=== PATIENT | female | born 1990 | race Caucasian/White ===

== ENCOUNTER 2024-01-06 23:35 | Emergency (ER) | payer SELFPAY ==
--- NOTE | ~2024-01-06 | XR_ITS ---
EXAMINATION: XR ANKLE, RIGHT CLINICAL INFORMATION: Fall. Pain. COMPARISON: None available. TECHNIQUE: AP, lateral, and mortise views of the right ankle. FINDINGS: Soft tissues are swollen at the ankle. Osseous fragment at the tip of the lateral malleolus are most consistent with old avulsed osseous fragments. Mild talocrural degenerative arthritis. Loose bodies are suspected in the posterior aspect of the joint adjacent to the os trigonum. Chronic posttraumatic deformity at the lateral aspect of the distal tibia. Talus appears intact. Small enthesopathic spurs are present at the Achilles tendon insertion and plantar fascial origin on the calcaneus. XR/XR ankle RT min 3V IMPRESSION: 1. Soft tissue swelling at the ankle. No acute fracture or malalignment. 2. Old avulsed osseous fragments at the tip of the lateral malleolus.
[2024-01-06 23:40] VITALS: BP 134/65; PULSE 66; RESP 14; TEMP 36.4; O2SAT 99; BMI 51.8
[2024-01-07] MEDS: oxyCODONE HCl Immed Release 5 MG TABLET PO (00:49)
[2024-01-07] MEDS: Bacitracin Oint 0.9 GM PACKET 1 APPL TOPICAL (00:49)
--- NOTE | 2024-01-07 00:56 | PC.NURSE ---
pt from home, a&ox4, respirations even and unlabored, reports stepping off of curb and falling and twisting right ankle; reports 10/10 right ankle pain. pt noted to have swelling to the right ankle, large scrape to the right knee and small scrapes to the right ankle. pt medicated per oct. bacitracin applied to right knee and applied to right ankle. right ankle wrapped with non adherent gauze and gauze wrap. tolerated well.
--- NOTE | 2024-01-07 01:05 | ED.GENADULT ---
HPI - General Adult General Chief complaint: Extremity Injury, Lower Stated complaint: Fell/rt leg and ankle Time Seen by Provider: 01/07/24 00:21 Source: patient, RN notes reviewed and old records reviewed Mode of arrival: ambulatory Limitations: no limitations History of Present Illness HPI narrative: 33-year-old female presents for evaluation of right ankle pain. Patient reports that she was standing outside when she stepped awkwardly and fell down. She scraped her right knee but mostly injured her right ankle She denies hitting her head or losing consciousness She has scraped the right knee and right ankle She is able to move the right knee without any difficulty Patient reports a low swelling to the outside of the right ankle and complains of 10/10 pain Denies any other pain including headaches, chest pain, shortness of breath Related Data Allergies Allergy/AdvReac Type Severity Reaction Status Date / Time No Known Allergies Allergy Verified 01/06/24 23:44 Review of Systems Constitutional: Constitutional: Denies headache(s) ENT: Denies headache(s) Musculoskeletal: Musculoskeletal: Reports arthralgias, Reports joint swelling and Reports limited range of motion Neurologic: Denies headache(s) PMFSH Social History Social History Smoked in Last 30 Days: No Use of substances other than those prescribed or required for medical reasons: No Advance Directives: No Advance Directives Information Provided: Yes Patient : No Physical Exam ED Vital Signs: Vital Signs - 24 hr 01/06/24 23:40 Temperature 97.6 F Pulse Rate 66 Respiratory Rate 14 Blood Pressure 134/65 Pulse Oximetry 99 Oxygen Delivery Method Room Air BMI result Body Mass Index 51.8 Const General: healthy appearing, comfortable, no acute distress, alert and awake Nutritional Appearance: well nourished Orientation/consciousness: patient oriented x3 HENMT Head: Yes normocephalic and Yes atraumatic Eyes Eyelids: Yes eyelids normal Conjunctivae: conjunctivae normal Sclerae: sclerae normal Corneas: corneas normal Pupils: Equal, round and reactive pupils present EOM: EOMs intact bilaterally Neck Neck: Yes full ROM Resp Effort & Inspection: normal respiratory effort, able to speak in complete sentences and not labored Skin Other: Superficial abrasions to the right knee and right lateral ankle without deep lacerations. General skin exam: elasticity normal Neuro General: patient oriented x3 Cranial nerves: Yes Equal, round and reactive pupils present and Yes Bilaterally intact EOM present Cognition (Neuro): normal cognition Extrem Other: Patient has significant edema of the right lateral malleolus of the ankle. This area is exquisitely tender to palpation. CMS intact of the right foot. She is able to wiggle all toes have good capillary refill and good sensation. There is no tenderness to the right knee. Course Course Course Narrative: X-ray shows old avulsion fracture, but no acute fractures. The patient does confirm that she has a previous fracture there. Plan to discharge with crutches and symptomatic care only Reevaluation(s) Time: 01:25 Medications Administered Discontinued Medications Generic Name Dose Route Start Last Admin Trade Name Freq PRN Reason Stop Dose Admin Bacitracin 1 appl 01/07/24 00:30 01/07/24 00:49 Bacitracin Oint 0.9 Gm Packet TOPICAL 01/07/24 00:31 1 appl ONCE ONE Administration Protocol Oxycodone HCl 5 mg 01/07/24 00:29 01/07/24 00:49 Oxycodone Hcl Immed Release 5 Mg Tablet PO 01/07/24 00:30 5 mg ONCE ONE Administration Medical Decision Making Medical Decision Making [facility] Narrative: 33-year-old female presents for evaluation of right ankle pain after a fall. Plan for x-ray. She has some small abrasions but no deep lacerations that would require suture. We will clean the wounds, apply topical antibiotic and apply sterile dressings Differential Diagnosis Differential Diagnoses: The differential diagnosis associated with the presentation includes Ankle sprain Contusion Fracture Abrasion Independent Interpretation I performed an independent interpretation of an: Plain X-Ray (Agree with Radiology interpretation) Radiology Impression Discussion of test interpretation with radiology: I have reviewed the radiologist's reading. Radiologist Impression: No acute fracture. There is an old avulsion fracture of the right lateral malleolus Discharge Plan Discharge Clinical Impression: Ankle sprain and strain Patient Disposition: Home, Self-Care Instructions: Ankle Sprain (ED) Additional Instructions: Your x-ray does not show any evidence of new fractures. Use ibuprofen/Tylenol for pain Elevate the leg above your heart while resting Ice the area every 4 hours for 10-15 minutes Follow-up with your primary doctor Print Language: Ivorian
[2024-01-07 01:47] VITALS: BP 134/65; PULSE 66; RESP 14; TEMP 36.4; O2SAT 99
== END 2024-01-07 01:47 | disposition home or self-care (01) ==
PROVIDERS: Emergency Provider Internal Medicine
DX: S93.401A Sprain of unspecified ligament of right ankle, initial encounter (principal); S96.911A Strain of unspecified muscle and tendon at ankle and foot level, right foot, initial encounter; W19.XXXA Unspecified fall, initial encounter; Y93.9 Activity, unspecified; Y92.9 Unspecified place or not applicable; Y99.9 Unspecified external cause status; M25.571 Pain in right ankle and joints of right foot
CPT/HCPCS: 73610; 99284